=== PATIENT | male | born 1975 | race Caucasian/White ===

== ENCOUNTER → 2019-10-25 13:37 | Outpatient (CLI) | payer BC, SELFPAY ==
[2019-10-25 14:51] LABS: Basophils % 0.6 % (0.1-2.0); Eosinophils # 0.1 K/mm3 (0.0-0.4); Eosinophils % 1.8 % (0.1-12.0); Hematocrit 51.6 % (42.0-52.0); Hemoglobin 17.2 g/dL (14.1-18.0); Lymphocytes # 1.4 K/mm3 (0.7-4.5); Lymphocytes % 26.8 % (10-50); Mean Corpuscular HGB Conc 33.3 g/dL (31.8-35.4); Mean Corpuscular Hemoglobin 31.8 pg (27.0-31.2); Mean Corpuscular Volume 95.5 fl (80-94); Mean Platelet Volume 8.9 fl (7.4-10.4); Monocytes # 0.4 K/mm3 (0.1-1.0); Monocytes % 7.6 % (1.7-9.3); Neutrophils # 3.4 K/mm3 (1.8-7.8); Neutrophils % 63.2 % (37.0-80.0); Platelet Count 233 K/mm3 (142-424); Red Blood Count 5.41 M/mm3 (4.60-6.20); Red Cell Distribution Width 12.8 % (11.5-17.5); White Blood Count 5.4 K/mm3 (4.8-10.8)
[2019-10-25 14:54] LABS: Alanine Aminotransferase 29 U/L (12-78); Albumin Level 4.8 g/dl (3.5-5.0); Albumin/Globulin Ratio 1.5 (1.1-1.8); Alkaline Phosphatase 65 U/L (38-126); Anion Gap 14.5 mEq/L (5-15); Aspartate Amino Transferase 26 U/L (17-59); Bilirubin,Total 0.5 mg/dl (0.2-1.3); Blood Urea Nitrogen 12 mg/dl (9-20); Calcium 10.2 mg/dl (8.4-10.2); Carbon Dioxide 26 mmol/L (22.0-30.0); Chloride 99 mmol/L (98-107); Chol/HDL Ratio 6.4 (1-3.5); Cholesterol 256 mg/dl (140-200); Estimated Glomerular Filt Rate 145 ml/min (>60); GFR (African American) 176 ML/MIN (>60); Globulin 3.2 g/dL (1.3-3.2); Glucose 303 mg/dl (74-100); HDL Cholesterol 40 mg/dl (40-60); Potassium 4.5 mmoL/L (3.5-5.1); Sodium 135 mmol/L (136-145); Triglycerides 229 mg/dl (30-150); VLDL Cholesterol 46 mg/dL (0-40)
[2019-10-25 15:06] LABS: Direct LDL Cholesterol 197.42 mg/dL (100-129)
[2019-10-25 15:13] LABS: T4 (Thyroxine) 9.8 ug/dl (5.53-11.0)
[2019-10-25 15:26] LABS: Prostate Specific Ag Screen 0.6 ng/ml (0.0-4.0)
[2019-10-25 16:20] LABS: Thyroid Stimulating Hormone 1.96 uIU/mL (0.465-4.68)
[2019-10-27 07:37] LABS: Creatinine, Urine 22.2 mg/dL (Not Estab.); Microalbumin, Urine 8.1 ug/mL (Not Estab.)
[2019-10-27 23:10] LABS: Vitamin D 25 Hydroxy 16.8 ng/mL (30.0-100.0)
== END ==
PROVIDERS: Visit Provider Emergency Medicine
DX: E11.9 Type 2 diabetes mellitus without complications (principal); I10 Essential (primary) hypertension; Z79.84 Long term (current) use of oral hypoglycemic drugs
CPT/HCPCS: 80053; 80061; 82043; 82570; 82652; 83036; 84436; 84443; 85025; G0103

== ENCOUNTER 2020-06-07 11:28 | Emergency (ER) | payer BC, SELFPAY ==
[2020-06-07 11:34] VITALS: BP 147/98; PULSE 97; RESP 20; TEMP 37.3; O2SAT 94; BMI 35.6
--- NOTE | 2020-06-07 11:41 | XR_ITS ---
PROCEDURE: XR FOREARM RT 2V CLINICAL INDICATION: pain COMPARISON: No exams were available for comparison FINDINGS: No fracture or dislocation. No lytic or blastic change. There is normal mineralization. The joint spaces are well-preserved. No significant degenerative/arthritic changes. No erosive changes evident. Other findings:None. IMPRESSION: No acute findings. Dictated by: Naseem Branch MD 06/07/2020 13:53 Naseem Branch MD in [place] 06/07/2020 13:53
[2020-06-07 11:42] VITALS: BP 147/98; PULSE 97; RESP 20; TEMP 37.3; O2SAT 94; BMI 35.8
--- NOTE | 2020-06-07 12:21 | HMH.EDUTC ---
[facility] [place] Clinical Impression: Right arm pain Disposition: Home, Self-Care Condition on Discharge: Good Instructions: DI for Arm Pain Additional Instructions: Rest the extremity, apply ice for 15 minutes as tolerated three or four times per day, Wear the mely wrap for compression, Elevate the extremity as tolerated while you are resting. Take ibuprofen for pain. I sent in a prescription to your pharmacy. Follow up with Dr. Horowitz (orthopedics). I put in a referral but you need to call his office and schedule an appointment. Follow up with your regular doctor. GO TO THE ER FOR ANY WORSENING SYMPTOMS Prescriptions: Ibuprofen [Ibuprofen 600mg Tablet] 600 mg PO Q6HP PRN #30 tab PRN Reason: Mild Pain Transmission Status: Received by [facility] Referrals: Kareem Carvalho MD [Primary Care Provider] - Scott Horowitz MD [Staff Physician] - Forms: Work/School Release Time of Disposition: 12:48 Medical Decision Making - Medical Records Medical records reviewed: No: I reviewed the patient's medical records. - Escobar Inquiry Pt receiving controlled substance: No Vital Signs: 06/07/20 11:34 06/07/20 11:42 06/07/20 13:09 Temperature 99.1 F 99.1 F 99.1 F Temperature Source Oral Oral Oral Pulse Rate 97 H Pulse Rate [Right Radial] 97 H 97 H Respiratory Rate 20 20 20 Blood Pressure 147/98 H Blood Pressure [Right Arm] 147/98 H 147/98 H Blood Pressure Mean [Right Arm] 114 114 Blood Pressure Source Automatic Cuff Blood Pressure Source [Right Arm] Automatic Cuff Blood Pressure Position Sitting Blood Pressure Position [Right Arm] Sitting 02 Sat by Pulse Oximetry 94 L 94 L Oxygen Delivery Method Room Air Room Air Room Air - Radiology Data #1 Image(s): Forearm Image Reviewed: Yes I reviewed the patient's radiology image, Yes I have reviewed radiologist's interpretation Preliminary Findings: Normal/NAD, No Fracture Seen PROCEDURE: XR FOREARM RT 2V CLINICAL INDICATION: pain COMPARISON: No exams were available for comparison FINDINGS: No fracture or dislocation. No lytic or blastic change. There is normal mineralization. The joint spaces are well-preserved. No significant degenerative/arthritic changes. No erosive changes evident. Other findings:None. IMPRESSION: No acute findings. Dictated by: Naseem Branch MD 06/07/2020:53 Naseem Branch MD in [place] 06/07/2020 13:53 [facility] [place] - General Stated complaint: right arm pain, no accident Time Seen by Provider: 06/07/20 12:21 Mode of Arrival: Ambulatory Source of Information: Patient Limitations: No Limitations Description of Symptoms (Recalled from Triage Doc. by RN): pt states that approx 1 week ago he was getting up off the floor and it felt like his right forearm bent. pt states the pain is getting worse throughout the week. HEENT Symptoms (Recalled from RN notes): No Resp Symptoms (Recalled from RN notes): No Skin Symptoms (Recalled from RN notes): No MS Symptoms (Recalled from RN notes): Yes Functional Status (Recalled from RN notes): wnl - History of Present Illness Provider Complaint: He c/o 1 week of right fore arm pain. The pain is worse with movement of the arm. He denies any known injury. - Related Data Previous Rx's Medication Instructions Recorded fluticasone furoate 100 1 inh INHALATION DAILY #1 each 10/25/19 mcg-vilanterol 25 mcg/dose inhalation powder albuterol sulfate 90 mcg/actuation 2 puff INHALATION Q6H PRN #18 g 10/28/19 aerosol inhaler glipizide 10 mg tablet, extended 10 mg PO DAILY #90 tab 10/28/19 release 24 hr polyethylene glycol 3350 17 17 g PO DAILY #255 g 11/29/19 gram/dose oral powder aspirin 81 mg tablet,delayed See Rx Instructions .ROUTE 04/23/20 release .COMPLEX #90 unspecified cholecalciferol (vitamin D3) 25 1,000 unit PO DAILY #90 cap 04/23/20 mcg (1,000 unit) capsule ergocalciferol (vitamin D2) 1,250 See Rx Instructions .ROUTE
[2020-06-07 13:09] VITALS: BP 147/98; PULSE 97; RESP 20; TEMP 37.3; O2SAT 94
== END 2020-06-07 13:10 | disposition home or self-care (01) ==
PROVIDERS: Emergency Provider Nurse Practitioner Family; PCP Emergency Medicine
DX: M79.601 Pain in right arm (principal)
CPT/HCPCS: 73090; 99201

== ENCOUNTER → 2020-06-28 14:17 | Outpatient (CLI) | payer BC, SELFPAY ==
--- NOTE | 2020-06-28 14:21 | XR_ITS ---
PROCEDURE: XR ELBOW RT MIN 3V CLINICAL INDICATION: right elbow pain COMPARISON: No exams were available for comparison FINDINGS: No fracture or dislocation. No lytic or blastic change. There is normal mineralization. The joint spaces are well-preserved. No significant degenerative/arthritic changes. No erosive changes evident. Other findings:None. IMPRESSION: No acute findings. Dictated by: Naseem Branch MD 06/28/2020 18:10 Naseem Branch MD in [place] 06/28/2020 18:10
--- NOTE | 2020-06-28 14:21 | XR_ITS ---
PROCEDURE: XR WRIST RT MIN 3V CLINICAL INDICATION: right wrist pain COMPARISON: No exams were available for comparison FINDINGS: No fracture or dislocation. No lytic or blastic change. There is normal mineralization. The joint spaces are well-preserved. No significant degenerative/arthritic changes. No erosive changes evident. Other findings:There are minimal osteoarthritic changes of the distal radial ulnar joint IMPRESSION: Minimal osteoarthritic change of the DRUJ otherwise negative Dictated by: Naseem Branch MD 06/28/2020 18:11 Naseem Branch MD in [place] 06/28/2020 18:11
== END ==
PROVIDERS: PCP Emergency Medicine; Visit Provider Orthopaedic Surgery
DX: M25.531 Pain in right wrist (principal); M25.521 Pain in right elbow
CPT/HCPCS: 73080; 73110

== ENCOUNTER 2020-06-28 15:06 | Outpatient (RCR) | payer BC, SELFPAY | END 2020-06-28 15:42 | disposition home or self-care (01) | LOC: OT 15:06 | PROVIDERS: Visit Provider Orthopaedic Surgery | DX: M65.831 Other synovitis and tenosynovitis, right forearm (principal) | CPT/HCPCS: 97763 ==

== ENCOUNTER → 2020-08-17 17:39 | Outpatient (CLI) | payer BC, SELFPAY ==
[2020-08-17 18:35] LABS: Basophils # 0.1 K/mm3 (0-0.2); Basophils % 0.6 % (0.1-2.0); Eosinophils # 0.2 K/mm3 (0.0-0.4); Eosinophils % 1.9 % (0.1-12.0); Hematocrit 51.9 % (42.0-52.0); Hemoglobin 17.3 g/dL (14.1-18.0); Lymphocytes # 1.9 K/mm3 (0.7-4.5); Lymphocytes % 23.1 % (10-50); Mean Corpuscular HGB Conc 33.4 g/dL (31.8-35.4); Mean Corpuscular Hemoglobin 31.3 pg (27.0-31.2); Mean Corpuscular Volume 93.9 fl (80-94); Mean Platelet Volume 8.6 fl (7.4-10.4); Monocytes # 0.4 K/mm3 (0.1-1.0); Monocytes % 5.3 % (1.7-9.3); Neutrophils # 5.8 K/mm3 (1.8-7.8); Neutrophils % 69.1 % (37.0-80.0); Platelet Count 199 K/mm3 (142-424); Red Blood Count 5.53 M/mm3 (4.60-6.20); Red Cell Distribution Width 12.6 % (11.5-17.5); White Blood Count 8.4 K/mm3 (4.8-10.8)
[2020-08-17 18:43] LABS: Alanine Aminotransferase 28 U/L (12-78); Albumin Level 5.1 g/dl (3.5-5.0); Albumin/Globulin Ratio 1.7 (1.1-1.8); Alkaline Phosphatase 73 U/L (38-126); Anion Gap 13.3 mEq/L (5-15); Aspartate Amino Transferase 26 U/L (17-59); Bilirubin,Total 0.5 mg/dl (0.2-1.3); Blood Urea Nitrogen 10 mg/dl (9-20); Calcium 10.2 mg/dl (8.4-10.2); Carbon Dioxide 28 mmol/L (22.0-30.0); Chloride 101 mmol/L (98-107); Chol/HDL Ratio 4.5 (1-3.5); Cholesterol 199 mg/dl (140-200); Estimated Glomerular Filt Rate 121 ml/min (>60); GFR (African American) 146 ML/MIN (>60); Glucose 335 mg/dl (74-100); HDL Cholesterol 44 mg/dl (40-60); Potassium 4.3 mmoL/L (3.5-5.1); Sodium 138 mmol/L (136-145); Total Protein,Serum 8.1 g/dl (6.3-8.2); Triglycerides 338 mg/dl (30-150); VLDL Cholesterol 68 mg/dL (0-40)
[2020-08-17 18:54] LABS: Direct LDL Cholesterol 111.47 mg/dL (100-129)
[2020-08-17 19:00] LABS: 25-OH Vitamin D, Total 34.4 ng/mL (30-100)
[2020-08-17 19:13] LABS: Thyroid Stimulating Hormone 1.54 uIU/mL (0.465-4.68)
== END ==
PROVIDERS: Visit Provider Family Medicine
DX: E11.9 Type 2 diabetes mellitus without complications (principal); E78.5 Hyperlipidemia, unspecified; I10 Essential (primary) hypertension; Z79.84 Long term (current) use of oral hypoglycemic drugs; Z68.30 Body mass index [BMI] 30.0-30.9, adult
CPT/HCPCS: 80053; 80061; 82306; 83036; 84443; 85025

== ENCOUNTER → 2020-09-28 14:01 | Outpatient (CLI) | payer BC, SELFPAY ==
[2020-09-28 14:22] LABS: Basophils # 0.1 K/mm3 (0-0.2); Basophils % 0.6 % (0.1-2.0); Eosinophils # 0.1 K/mm3 (0.0-0.4); Hematocrit 51.1 % (42.0-52.0); Hemoglobin 17.1 g/dL (14.1-18.0); Lymphocytes # 1.7 K/mm3 (0.7-4.5); Mean Corpuscular HGB Conc 33.4 g/dL (31.8-35.4); Mean Corpuscular Hemoglobin 31.8 pg (27.0-31.2); Mean Corpuscular Volume 95.1 fl (80-94); Mean Platelet Volume 8.9 fl (7.4-10.4); Monocytes # 0.5 K/mm3 (0.1-1.0); Monocytes % 5.8 % (1.7-9.3); Neutrophils # 5.6 K/mm3 (1.8-7.8); Neutrophils % 70.7 % (37.0-80.0); Platelet Count 256 K/mm3 (142-424); Red Blood Count 5.37 M/mm3 (4.60-6.20); Red Cell Distribution Width 12.9 % (11.5-17.5); White Blood Count 7.9 K/mm3 (4.8-10.8)
[2020-09-28 14:31] LABS: Alanine Aminotransferase 26 U/L (12-78); Albumin/Globulin Ratio 1.6 (1.1-1.8); Alkaline Phosphatase 57 U/L (38-126); Anion Gap 13.5 mEq/L (5-15); Aspartate Amino Transferase 25 U/L (17-59); Bilirubin,Total 0.6 mg/dl (0.2-1.3); Blood Urea Nitrogen 16 mg/dl (9-20); Calcium 9.9 mg/dl (8.4-10.2); Carbon Dioxide 25 mmol/L (22.0-30.0); Chloride 106 mmol/L (98-107); Chol/HDL Ratio 4.2 (1-3.5); Cholesterol 134 mg/dl (140-200); Estimated Glomerular Filt Rate 121 ml/min (>60); GFR (African American) 146 ML/MIN (>60); Globulin 3.1 g/dL (1.3-3.2); Glucose 138 mg/dl (74-100); HDL Cholesterol 32 mg/dl (40-60); Potassium 4.5 mmoL/L (3.5-5.1); Sodium 140 mmol/L (136-145); Total Protein,Serum 8.1 g/dl (6.3-8.2); Triglycerides 160 mg/dl (30-150); VLDL Cholesterol 32 mg/dL (0-40)
[2020-09-28 14:42] LABS: Direct LDL Cholesterol 76.42 mg/dL (100-129)
[2020-09-28 14:49] LABS: T4 (Thyroxine) 10.1 ug/dl (5.53-11.0)
[2020-09-28 15:02] LABS: Hemoglobin A1C 11.3 % (4.0-6.0); Thyroid Stimulating Hormone 0.85 uIU/mL (0.465-4.68)
== END ==
PROVIDERS: Visit Provider Family Medicine
DX: E11.9 Type 2 diabetes mellitus without complications (principal); Z79.84 Long term (current) use of oral hypoglycemic drugs; Z79.899 Other long term (current) drug therapy
CPT/HCPCS: 80053; 80061; 83036; 84436; 84443; 85025

== ENCOUNTER 2020-12-19 15:52 | Outpatient (RCR) | payer BC, SELFPAY | END 2020-12-19 16:37 | disposition home or self-care (01) | LOC: PT 15:52 | PROVIDERS: Visit Provider Orthopaedic Surgery | DX: G56.01 Carpal tunnel syndrome, right upper limb (principal); M65.4 Radial styloid tenosynovitis [de Quervain]; M25.531 Pain in right wrist | CPT/HCPCS: 97763 ==

== ENCOUNTER → 2021-01-17 14:07 | Outpatient (CLI) | payer BC, SELFPAY ==
--- NOTE | 2021-01-17 14:12 | XR_ITS ---
PROCEDURE: XR HIP LT 2-3V W/PELVIS CLINICAL INDICATION: left hip pain COMPARISON: No exams were available for comparison FINDINGS: No fracture or dislocation is evident. There is mild asymmetrical joint space narrowing. Mild pericapsular calcifications or ossifications adjacent to the greater trochanter left hip. The left pubic bones appear normal. The SI joints are normal. Right hip shows mild asymmetrical joint space narrowing as well. IMPRESSION: [id number] osteoarthritic changes left hip with periarticular calcifications or ossifications adjacent to the greater trochanter Dictated by: Dr. Donald Velasquez MD 01/17/2021 14:45 Dr. Donald Velasquez MD in [place] 01/17/2021 14:45
== END ==
PROVIDERS: PCP Family Medicine; Visit Provider Orthopaedic Surgery
DX: M25.552 Pain in left hip (principal)
CPT/HCPCS: 73502

== ENCOUNTER → 2021-02-07 13:54 | Outpatient (CLI) | payer BC, SELFPAY ==
--- NOTE | 2021-02-07 14:01 | XR_ITS ---
PROCEDURE: XR HAND LT MIN 3V CLINICAL INDICATION: left hand pain COMPARISON: No exams were available for comparison FINDINGS: No fracture or dislocation. No lytic or blastic change. There is normal mineralization. The joint spaces are well-preserved. No significant degenerative/arthritic changes. No erosive changes evident. Other findings:Benign-appearing cystic areas present in the head of the 3rd metacarpal at approximately 4 mm IMPRESSION: No acute findings. Dictated by: Naseem Branch MD 02/07/2021 14:54 Naseem Branch MD in [place] 02/07/2021 14:54
== END ==
PROVIDERS: PCP Family Medicine; Visit Provider Orthopaedic Surgery
DX: M79.642 Pain in left hand (principal)
CPT/HCPCS: 73130

== ENCOUNTER → 2021-02-07 16:15 | Outpatient (CLI) | payer BC, SELFPAY | PROVIDERS: Visit Provider Orthopaedic Surgery | DX: Z01.812 Encounter for preprocedural laboratory examination (principal) | CPT/HCPCS: 85651 ==

== ENCOUNTER → 2021-02-08 08:30 | Outpatient (CLI) | payer BC, SELFPAY ==
[2021-02-08 09:17] LABS: Basophils % 0.6 % (0.1-2.0); Eosinophils # 0.1 K/mm3 (0.0-0.4); Eosinophils % 1.4 % (0.1-12.0); Hematocrit 50.1 % (42.0-52.0); Lymphocytes # 1.4 K/mm3 (0.7-4.5); Lymphocytes % 23.1 % (10-50); Mean Corpuscular HGB Conc 31.9 g/dL (31.8-35.4); Mean Corpuscular Hemoglobin 30.1 pg (27.0-31.2); Mean Corpuscular Volume 94.3 fl (80-94); Mean Platelet Volume 7.5 fl (7.4-10.4); Monocytes # 0.5 K/mm3 (0.1-1.0); Monocytes % 8.3 % (1.7-9.3); Neutrophils # 4.1 K/mm3 (1.8-7.8); Neutrophils % 66.6 % (37.0-80.0); Platelet Count 212 K/mm3 (142-424); Red Blood Count 5.32 M/mm3 (4.60-6.20); Red Cell Distribution Width 12.8 % (11.5-17.5); White Blood Count 6.1 K/mm3 (4.8-10.8)
[2021-02-08 09:38] LABS: Uric Acid 4.6 mg/dl (3.5-8.5)
[2021-02-08 09:40] LABS: Alanine Aminotransferase 27 U/L (12-78); Albumin Level 4.5 g/dl (3.5-5.0); Albumin/Globulin Ratio 1.9 (1.1-1.8); Alkaline Phosphatase 56 U/L (38-126); Anion Gap 15.3 mEq/L (5-15); Aspartate Amino Transferase 24 U/L (17-59); Bilirubin,Total 0.7 mg/dl (0.2-1.3); Blood Urea Nitrogen 19 mg/dl (9-20); Calcium 9.2 mg/dl (8.4-10.2); Carbon Dioxide 25 mmol/L (22.0-30.0); Chloride 105 mmol/L (98-107); Estimated Glomerular Filt Rate 121 ml/min (>60); GFR (African American) 146 ML/MIN (>60); Globulin 2.4 g/dL (1.3-3.2); Glucose 163 mg/dl (74-100); Potassium 4.3 mmoL/L (3.5-5.1); Sodium 141 mmol/L (136-145); Total Protein,Serum 6.9 g/dl (6.3-8.2)
[2021-02-08 09:43] LABS: C-Reactive Protein 4.8 mg/L (0-4)
[2021-02-08 09:56] LABS: Free T4 (Free Thyroxine) 0.92 ng/dl (0.78-2.19)
[2021-02-08 10:09] LABS: Thyroid Stimulating Hormone 1.13 uIU/mL (0.465-4.68)
[2021-02-08 10:27] LABS: Vitamin B12 356 pg/mL (239-931)
[2021-02-08 11:03] LABS: Erythrocyte Sedimentation Rate 2 mm/hr (0-15)
[2021-02-09 05:37] LABS: RA Latex Turbid. 10.8 IU/mL (0.0-13.9)
[2021-02-10 00:07] LABS: Anti-Cyclic Citrullinated Pept 7 units (0-19)
[2021-02-10 16:17] LABS: Antinuclear Antibodies, IFA Negative (.)
== END ==
PROVIDERS: Orthopaedic Surgery; Visit Provider Family Medicine
DX: M79.642 Pain in left hand (principal); R41.3 Other amnesia
CPT/HCPCS: 36415; 80053; 82607; 84439; 84443; 84550; 85025; 85651; 86038; 86140; 86200; 86431

== ENCOUNTER 2021-02-08 08:57 | Outpatient (RCR) | payer BC, SELFPAY | END 2021-02-08 09:34 | disposition home or self-care (01) | LOC: OT 08:57 | PROVIDERS: Visit Provider Orthopaedic Surgery | DX: M79.642 Pain in left hand (principal) | CPT/HCPCS: 97763 ==

== ENCOUNTER → 2021-02-14 14:32 | Outpatient (CLI) | payer BC, SELFPAY ==
--- NOTE | 2021-02-14 14:32 | CT_ITS ---
PROCEDURE: CT HEAD/BRAIN WO CON CLINICAL INDICATION: memory loss And headache COMPARISON: No exams were available for comparison TECHNIQUE: Axial images obtained. All CT scans at the facility use one or more dose reduction, viz: automated exposure control, ma/kV adjustment per patient size (including targeted exams where dose is matched to indication, i.e. head), or iterative reconstruction technique. FINDINGS: No midline shift, mass effect, intracranial hemorrhage, hydrocephalus, or extra-axial fluid collection is evident. There are no significant atrophic changes. The calvarium has an unremarkable appearance. No mastoid effusion. No sinus air-fluid level. IMPRESSION: No acute intracranial finding Dictated by: Dr. Donald Velasquez MD 02/14/2021 15:21 Dr. Donald Velasquez MD in [place] 02/14/2021 15:21
== END ==
PROVIDERS: PCP Family Medicine; Visit Provider Family Medicine
DX: R41.3 Other amnesia (principal)
CPT/HCPCS: 70450

== ENCOUNTER → 2021-02-19 12:42 | Outpatient (CLI) | payer BC, SELFPAY ==
[2021-02-19 14:23] LABS: Hemoglobin A1C 7.3 % (4.0-6.0)
[2021-02-19 15:23] LABS: Folate 8.67 ng/mL
[2021-02-21 12:11] LABS: Homocyst(e)ine 10.7 umol/L (0.0-14.5)
[2021-02-21 14:07] LABS: Rapid Plasma Reagin Ab Titer Non Reactive (NonRea<1:1)
[2021-02-23 03:49] LABS: Methylmalonic Acid 355 nmol/L (0-378)
== END ==
PROVIDERS: Visit Provider Nurse Practitioner Family
DX: E11.69 Type 2 diabetes mellitus with other specified complication (principal); I10 Essential (primary) hypertension; E78.5 Hyperlipidemia, unspecified; F12.90 Cannabis use, unspecified, uncomplicated; G47.8 Other sleep disorders; R06.83 Snoring; R41.3 Other amnesia; R53.83 Other fatigue; E66.9 Obesity, unspecified; Z68.30 Body mass index [BMI] 30.0-30.9, adult; Z79.84 Long term (current) use of oral hypoglycemic drugs; Z72.0 Tobacco use; Z86.69 Personal history of other diseases of the nervous system and sense organs
CPT/HCPCS: 36415; 82131; 82746; 83036; 83090; 86592; 86618

== ENCOUNTER → 2021-03-01 07:36 | Outpatient (CLI) | payer BC, SELFPAY ==
--- NOTE | 2021-03-01 07:47 | XR_ITS ---
PROCEDURE: XR CHEST 2V CLINICAL HISTORY: R/O FB FOR MRI SCAN COMPARISON: No exams were available for comparison FINDINGS: The cardiomediastinal silhouette and pulmonary vascularity are within normal limits. The lungs are clear without infiltrates, suspicious nodules, or pleural effusions. There is a rounded metallic density measuring 4 mm located in the left upper quadrant representing a BB. IMPRESSION: No acute finding. Metallic foreign body in the left upper quadrant Dictated by: Naseem Branch MD 03/01/2021 08:09 Naseem Branch MD in [place] 03/01/2021 08:09
== END ==
PROVIDERS: PCP Family Medicine; Visit Provider Nurse Practitioner Family
DX: Z18.9 Retained foreign body fragments, unspecified material (principal)
CPT/HCPCS: 71046

== ENCOUNTER → 2021-03-12 07:29 | Outpatient (CLI) | payer BC, SELFPAY ==
[2021-03-12 08:50] LABS: Coronavirus 19 IgG Antibody Negative (Negative); Coronavirus 19 IgM Antibody Negative (Negative)
== END ==
PROVIDERS: Visit Provider Nurse Practitioner Family
DX: Z20.822 Contact with and (suspected) exposure to COVID-19 (principal)
CPT/HCPCS: 36415; 86328

== ENCOUNTER → 2021-11-12 07:52 | Outpatient (CLI) | payer BC, SELFPAY ==
[2021-11-12 08:49] LABS: Basophils # 0.1 K/mm3 (0-0.2); Eosinophils # 0.1 K/mm3 (0.0-0.4); Eosinophils % 1.6 % (0.1-12.0); Hematocrit 53.3 % (42.0-52.0); Hemoglobin 17.4 g/dL (14.1-18.0); Lymphocytes # 1.4 K/mm3 (0.7-4.5); Lymphocytes % 23.8 % (10-50); Mean Corpuscular HGB Conc 32.6 g/dL (31.8-35.4); Mean Corpuscular Volume 98.2 fl (80-94); Mean Platelet Volume 7.9 fl (7.4-10.4); Monocytes # 0.4 K/mm3 (0.1-1.0); Monocytes % 6.8 % (1.7-9.3); Neutrophils # 3.9 K/mm3 (1.8-7.8); Neutrophils % 66.8 % (37.0-80.0); Platelet Count 208 K/mm3 (142-424); Red Blood Count 5.43 M/mm3 (4.60-6.20); Red Cell Distribution Width 12.9 % (11.5-17.5); White Blood Count 5.9 K/mm3 (4.8-10.8)
[2021-11-12 09:24] LABS: Hemoglobin A1C 6.8 % (4.0-6.0)
[2021-11-12 09:41] LABS: Chloride 106 mmol/L (98-107); Potassium 5.1 mmoL/L (3.5-5.1); Sodium 141 mmol/L (136-145)
[2021-11-12 09:43] LABS: Alanine Aminotransferase 24 U/L (12-78); Albumin Level 4.7 g/dl (3.5-5.0); Albumin/Globulin Ratio 1.9 (1.1-1.8); Alkaline Phosphatase 60 U/L (38-126); Anion Gap 11.1 mEq/L (5-15); Aspartate Amino Transferase 24 U/L (17-59); Bilirubin,Total 0.4 mg/dl (0.2-1.3); Blood Urea Nitrogen 16 mg/dl (9-20); Carbon Dioxide 29 mmol/L (22.0-30.0); Estimated Glomerular Filt Rate 120 ml/min (>60); GFR (African American) 146 ML/MIN (>60); Globulin 2.5 g/dL (1.3-3.2); Total Protein,Serum 7.2 g/dl (6.3-8.2)
[2021-11-12 09:44] LABS: Calcium 8.9 mg/dl (8.4-10.2); Chol/HDL Ratio 3.2 (1-3.5); Cholesterol 120 mg/dl (140-200); Glucose 135 mg/dl (74-100); HDL Cholesterol 38 mg/dl (40-60); Triglycerides 98 mg/dl (30-150); VLDL Cholesterol 20 mg/dL (0-40)
[2021-11-12 09:55] LABS: Direct LDL Cholesterol 67.55 mg/dL (100-129)
[2021-11-12 10:15] LABS: Thyroid Stimulating Hormone 0.94 uIU/mL (0.465-4.68)
== END ==
PROVIDERS: Visit Provider Family Medicine
DX: Z00.00 Encounter for general adult medical examination without abnormal findings (principal); E11.9 Type 2 diabetes mellitus without complications
CPT/HCPCS: 36415; 80053; 80061; 83036; 84443; 85025

== ENCOUNTER → 2021-11-22 09:16 | Outpatient (CLI) | payer BC, SELFPAY | PROVIDERS: PCP Family Medicine; Visit Provider Physician Assistant | DX: R06.00 Dyspnea, unspecified (principal); R00.2 Palpitations; E11.9 Type 2 diabetes mellitus without complications; E78.5 Hyperlipidemia, unspecified; I10 Essential (primary) hypertension; E66.9 Obesity, unspecified; Z72.0 Tobacco use; Z79.84 Long term (current) use of oral hypoglycemic drugs | CPT/HCPCS: 93270 ==

== ENCOUNTER → 2021-11-29 06:58 | Outpatient (CLI) | payer BC, SELFPAY ==
--- NOTE | 2021-11-29 07:00 | CA_ITS ---
APPROVED REPORT EXAM: Comprehensive 2D, Doppler, and color-flow Echocardiogram Key Account Representative: Sissy Whitfield RVT Ht: 6 ft 1 in Wt: 223lbs BSA: 2.25 BP: 123/79 mmHg Indications: CP,SOA,PALPS,SMOKER,DM,HTN,HLD 2D Dimensions LVOT 2.02 cm (M/F) 1.5-2.5 LA Volume 34.40 mL LA Volume Index 15.28 mL/m2 (M/F) 16-34 M-Mode Dimensions RVDd 2.33 cm (0.9-2.6) LA Diam 3.73 cm (1.9-4.0) LVDd 5.38 cm (3.5-5.7) Ao Diam 3.73 cm (2.0-3.7) LVDs 3.49 cm (3.5-5.7) IVSd 1.00 cm (0.6-1.1) PWd 1.00 cm (0.6-1.1) EF (Teich) 64.00% FS 35.10% EDV (Teich) 140.10 mL TAPSE 2.70 (<1.7) ESV (Teich) 50.50 mL LV Diastology E Decel Time 207.00 (160-240 msec) E/A Ratio 1.1 MED E' 6.90 (< 7 cm/sec) E'/MED E' Ratio 14.26 (>14) LAT E' 7.00 (<10 cm/sec) E/LAT E' Ratio 14.06 (>14) Aortic Valve LVOT Max 152.00 (70-110 cm/s) LVOT VTI 30.11 cm AoV Peak Miky. 156.00 (50-130 cm/s) AO Peak GR. 9.80 mmHg AO Mean GR. 5.20 (<5 mmHg) AO VTI 32.58 (18-25 cm) JUAN (VTI) 2.96 (2.5-4.5 cm2) Mitral Valve MV E Max Miky. 98.00 (40-130 cm/s) MV A Velocity 92.00 (40-130 cm/s) E/A Ratio 1.06 MV Decel. Time 207.00 (160-240 ms) MV PHT 61.00 ms Pulmonary Valve PV Peak Velocity 78.00 (50-150 cm/s) Tricuspid Valve TR P. Velocity 135.00 cm/s RAP Estimate 10.00 mmHg RVSP 17.30 mmHg Left Ventricle Left atrium is mildly enlarged, left ventricle normal size, mild concentric left ventricular hypertrophy, estimated ejection fraction 55% with no regional wall motion abnormality, diastolic parameters are inconclusive. Right Ventricle Right atrium and right ventricle are normal size and contractility. Aortic Valve Aortic valve is minimally thickened and fibrosed, there is no aortic stenosis or aortic insufficiency. Mitral Valve Mitral valve grossly normal, there is trace mitral regurgitation. Tricuspid Valve Tricuspid valve grossly normal, there is trace tricuspid regurgitation, tricuspid rotation jet velocity is inadequate for calculation of the right ventricular systolic pressure. Pulmonic Valve Pulmonic valve is poorly visualized. Great Vessels Aortic root is normal size. Inferior vena cava is mildly dilated and respiratory collapse. Pericardium No significant pericardial effusion noted. Conclusion 1. Mildly enlarged left atrium, normal left ventricular size, mild concentric left ventricular hypertrophy, estimated ejection fraction 55% with no regional wall motion abnormality, diastolic parameters are inconclusive. 2. Trace mitral and tricuspid rotation. 3. No significant pericardial effusion noted. 4. Inferior vena cava is mildly dilated with normal inspiratory collapse. Electronically signed by : Florentni Alvarez MD 11/30/2021 10:06:53
--- NOTE | 2021-11-29 07:00 | CA_ITS ---
APPROVED REPORT Exam: Exercise Treadmill Technologist: Janell Pascual, Ht: 6 ft 1 in Wt: 217 lbs BSA: 2.23 m2 HR: 66 bpm BP: 129/81 mmHg Rhythm: NSR Indications: CP Medical History Medical History: HTN, Hyperlipidemia, Diabetic ??? Noninsulin, Smoking Medications: Lisinopril,,,,, Aspirin,,,,, Simvastatin,,,,, Metformin,,,,, TAMSULOSIN,,,,, Albuterol,,,,, Ibuprofen,,,,, DApagliflozin,,,,, SeMaglutide,,,,, Allergies: ERYTHROMYCIN,IODINE,PCN Cardiac Risk Factors: HTN, Hyperlipidemia, Diabetes (non-insulin), FHX of CAD, Smoking Stress Test Details Test: Neela HR Resting HR: 74 bpm Max Heart Rate (APMHR): 172.975836 bpm Max HR Achieved: 197 bpm Target HR (85% APMHR): 146.960547 bpm % of APMHR: 114.53 Recovery HR: 105 bpm BP Resting BP: 138.0/84.0 mmHg Max BP: 188.0/75.0 mmHg Recovery BP: 188.0/75.0 mmHg ECG Resting ECG: NSR Clinical Exercise duration: 07:00 min Highest Stage Achieved: Exercise capacity: 10.1 METs Stress ECG Conclusion PATIENT EXERCISED 7:00 INTO STAGE 3 OF NEELA PROTOCOL STOPPING DUE TO SOA. MAX HEART RATE 139 BPM WHICH IS 81% OF PM FOR AGE. MAX BP 188/75. METS = 10.1. TEST STOPPED DUE TO DYSPNEA. SOA BUT NO CHEST PAIN. NO ARRHYTHMIAS/ECTOPY. ALLOWING FOR MOTION ARTIFACT THE ST RESPONSE TO EXERCISE APPEARS WITHIN NORMAL LIMITS. WITHIN NORMAL GXT LIMITS TO HR ACHIEVED(81% OF PM). MYOVIEW IMAGES REPORTED SEPARATELY. Test Summary REST . . . . . . . Sitting REST . . . . . . . Standing REST 03:52 0.0 0.0 74 . 138/ 84 . . Stage 1 01:00 10.0 1.7 87 . . . . Stage 1 02:00 10.0 1.7 100 . . . . Stage 1 03:00 10.0 1.7 103 . 162/ 80 . . Stage 2 01:00 12.0 2.5 197 . . . . Stage 2 02:00 12.0 2.5 126 . 186/ 80 . . Stage 2 . . . . . . . Myoview Injected Stage 2 03:00 12.0 2.5 128 . 186/ 80 . . Stage 3 01:00 14.0 3.4 138 . . . Stop exercise at 07:00 RECOVERY 01:00 0.0 0.0 108 . . . . RECOVERY 02:00 0.0 0.0 91 . 188/ 75 . . RECOVERY 03:00 0.0 0.0 87 . 182/ 83 . . RECOVERY 04:00 0.0 0.0 85 . 141/ 84 . . RECOVERY 05:00 0.0 0.0 87 . 146/ 87 . . RECOVERY 05:13 0.0 0.0 86 . 146/ 87 . . Electronically signed by : Florentin Alavrez MD 11/30/2021 09:23:45
--- NOTE | 2021-11-29 07:00 | NM_ITS ---
APPROVED REPORT Exam: Nuclear Stress Test Indication: chest pain..short of breath..palpitations..fatigue Patient Location: Outpatient Stress Tech: Janell Pascual [place] Tech:Sherri MancillaTUCKER RT(R)(N) Ht: 6 ft 1 in Wt: 217 lbs HR: 66 bpm BP: 129/81 mmHg BSA: 2.23 m2 BMI: 28.6 History: chest pain..short of breath..palpitations..fatigue Procedure: Patient exercised on Asim protocol 7 minutes and sec, resting heart rate 66 bpm, resting blood pressure 129/81 mmHg, with exercise maximum heart rate achived was 139 bpm which is 81 % of the maximum predicted heart rate and blood pressure was 188/75 mmHg. Test was stopped due to dyspnea. Patient denied any complaint of chest pain. Patient has Good exercise capacity, achieved 10.1 METs of workload on treadmill, the blood pressure response to exercise was Adequate. Electrocardiogram Resting electrocardiogram shows sinus rhythm, with exercise there is less than 1.[address] segment depression noted from the baseline EKG. The EKG portion of the exercise Myoview is nondiagnostic as patient did not achieve the target heart rate. Cardiac Stress and Resting SPECT Images: Cardiac Stress and Resting SPECT images were obtained using technetium 99m Myoview 32.9 mCi stress and 10.62 mCi at rest. Gated SPECT for analysis of segmental wall motion and calculation of the ejection fraction also done. Cardiac stress and rest SPECT images show uniform myocardial activity without segmental perfusion abnormality, computer derived ejection fraction is 68% with no regional wall motion abnormality, right ventricle is normal size and contractility. Conclusion: 1. The EKG portion of the exercise Myoview is nondiagnostic as patient did not achieve the target heart rate, patient has good exercise capacity achieved 10.1 METs of workload on treadmill, the blood pressure response to exercise was adequate, there was no exercise-induced chest discomfort. 2. No scintigraphic evidence of reversible ischemia seen at this level of exercise, computer derived ejection fraction is 68% with no regional wall motion abnormality, right ventricle is normal size and contractility. Electronically signed by : Florentin Alvarez MD 11/30/2021 09:30:46
== END ==
PROVIDERS: PCP Family Medicine; Visit Provider Internal Medicine Cardiovascular Disease
DX: R06.00 Dyspnea, unspecified (principal); R00.2 Palpitations; I10 Essential (primary) hypertension; E78.5 Hyperlipidemia, unspecified; E11.9 Type 2 diabetes mellitus without complications; E66.9 Obesity, unspecified; Z72.0 Tobacco use; Z79.84 Long term (current) use of oral hypoglycemic drugs; Z68.29 Body mass index [BMI] 29.0-29.9, adult
CPT/HCPCS: 78452; 93017; 93306; A9502

== ENCOUNTER → 2022-02-08 11:13 | Outpatient (CLI) | payer BC, SELFPAY ==
[2022-02-08 11:36] LABS: Basophils # 0.1 K/mm3 (0-0.2); Basophils % 0.7 % (0.1-2.0); Eosinophils # 0.1 K/mm3 (0.0-0.4); Hematocrit 48.4 % (42.0-52.0); Hemoglobin 15.8 g/dL (14.1-18.0); Lymphocytes # 1.6 K/mm3 (0.7-4.5); Lymphocytes % 23.2 % (10-50); Mean Corpuscular HGB Conc 32.5 g/dL (31.8-35.4); Mean Corpuscular Hemoglobin 31.9 pg (27.0-31.2); Mean Platelet Volume 7.7 fl (7.4-10.4); Monocytes # 0.5 K/mm3 (0.1-1.0); Monocytes % 6.7 % (1.7-9.3); Neutrophils # 4.6 K/mm3 (1.8-7.8); Neutrophils % 67.4 % (37.0-80.0); Platelet Count 214 K/mm3 (142-424); Red Blood Count 4.94 M/mm3 (4.60-6.20); White Blood Count 6.9 K/mm3 (4.8-10.8)
[2022-02-08 12:16] LABS: C-Reactive Protein 2.5 mg/L (0-4)
[2022-02-11 17:47] LABS: Cytoplasmic (C-ANCA) <1:20 titer (Neg:<1:20); Perinuclear (P-ANCA) <1:20 titer (Neg:<1:20)
[2022-02-12 10:28] LABS: D001-IgE D pteronyssinus <0.10 kU/L (Class 0); D002-IgE D farinae <0.10 kU/L (Class 0); E001-IgE Cat Dander 0.46 kU/L (Class I); E005-IgE Dog Dander 0.12 kU/L (Class 0/I); E072-IgE Mouse Urine <0.10 kU/L (Class 0); G002-IgE Bermuda Grass 0.26 kU/L (Class 0/I); G006-IgE Timothy Grass 4.43 kU/L (Class IV); I006-IgE Cockroach, German <0.10 kU/L (Class 0); Immunoglobulin E, Total 81 IU/mL (6-495); M001-IgE Penicillium chrysogen <0.10 kU/L (Class 0); M002-IgE Cladosporium herbarum <0.10 kU/L (Class 0); M003-IgE Aspergillus fumigatus <0.10 kU/L (Class 0); M006-IgE Alternaria alternata 1.36 kU/L (Class II); T001-IgE Maple/Box Elder <0.10 kU/L (Class 0); T003-IgE Common Silver Birch 1.23 kU/L (Class II); T006-IgE Cedar, Mountain <0.10 kU/L (Class 0); T007-IgE Oak, White 1.24 kU/L (Class II); T008-IgE Elm, American <0.10 kU/L (Class 0); T010-IgE Walnut <0.10 kU/L (Class 0); T011-IgE Maple Leaf Sycamore <0.10 kU/L (Class 0); T014-IgE Cottonwood <0.10 kU/L (Class 0); T022-IgE Pecan, Hickory <0.10 kU/L (Class 0); T070-IgE White Mulberry <0.10 kU/L (Class 0); W001-IgE Ragweed, Short <0.10 kU/L (Class 0); W011-IgE Thistle, Russian <0.10 kU/L (Class 0); W014-IgE Pigweed, Common <0.10 kU/L (Class 0); W018-IgE Sheep Sorrel <0.10 kU/L (Class 0)
[2022-02-12 14:15] LABS: Strongyloides IgG Antibody Negative (Negative)
[2022-02-15 22:57] LABS: Antinuclear Antibodies (ANA) NEGATIVE
== END ==
PROVIDERS: PCP Family Medicine; Visit Provider Internal Medicine Pulmonary Disease
DX: R06.09 Other forms of dyspnea (principal); J45.909 Unspecified asthma, uncomplicated; D72.19 Other eosinophilia; J84.9 Interstitial pulmonary disease, unspecified
CPT/HCPCS: 36415; 82785; 85025; 86003; 86038; 86140; 86225; 86235; 86256; 86682

== ENCOUNTER → 2022-02-19 08:36 | Outpatient (CLI) | payer BC, SELFPAY | PROVIDERS: PCP Family Medicine; Visit Provider Nurse Practitioner Family | DX: R06.02 Shortness of breath (principal) | CPT/HCPCS: 94762 ==

== ENCOUNTER → 2022-03-22 07:26 | Outpatient (CLI) | payer BC, SELFPAY ==
--- NOTE | 2022-03-22 09:00 | PC.NURSE ---
PFT and 6 Minute Walk Test completed without complication. Pt given Albuterol 0.083% via HHN per written protocol. Pt tolerated tx well.
== END ==
PROVIDERS: PCP Family Medicine; Visit Provider Internal Medicine Pulmonary Disease
DX: R06.09 Other forms of dyspnea (principal)
CPT/HCPCS: 94060; 94618; 94726; 94729

== ENCOUNTER → 2022-05-07 08:34 | Outpatient (CLI) | payer BC, SELFPAY ==
[2022-05-07 13:59] LABS: Basophils # 0.1 K/mm3 (0-0.2); Basophils % 1.3 % (0.1-2.0); Eosinophils # 0.1 K/mm3 (0.0-0.4); Eosinophils % 1.5 % (0.1-12.0); Hematocrit 53.1 % (42.0-52.0); Hemoglobin 17.3 g/dL (14.1-18.0); Lymphocytes # 1.6 K/mm3 (0.7-4.5); Lymphocytes % 21.7 % (10-50); Mean Corpuscular HGB Conc 32.5 g/dL (31.8-35.4); Mean Corpuscular Hemoglobin 32.1 pg (27.0-31.2); Mean Corpuscular Volume 98.9 fl (80-94); Mean Platelet Volume 9.1 fl (7.4-10.4); Monocytes # 0.8 K/mm3 (0.1-1.0); Monocytes % 9.9 % (1.7-9.3); Neutrophils % 65.6 % (37.0-80.0); Platelet Count 209 K/mm3 (142-424); Red Blood Count 5.37 M/mm3 (4.60-6.20); Red Cell Distribution Width 13.1 % (11.5-17.5); White Blood Count 7.5 K/mm3 (4.8-10.8)
[2022-05-07 14:13] LABS: Chloride 100 mmol/L (98-107); Potassium 4.2 mmoL/L (3.5-5.1); Sodium 141 mmol/L (136-145)
[2022-05-07 14:15] LABS: Alanine Aminotransferase 31 U/L (12-78); Aspartate Amino Transferase 37 U/L (17-59); Blood Urea Nitrogen 14 mg/dl (9-20); Estimated Glomerular Filt Rate 120 ml/min (>60); GFR (African American) 145 ML/MIN (>60)
[2022-05-07 14:16] LABS: Albumin Level 5.1 g/dl (3.5-5.0); Albumin/Globulin Ratio 1.9 (1.1-1.8); Alkaline Phosphatase 80 U/L (38-126); Anion Gap 19.2 mEq/L (5-15); Bilirubin,Total 0.5 mg/dl (0.2-1.3); Calcium 9.3 mg/dl (8.4-10.2); Carbon Dioxide 26 mmol/L (22.0-30.0); Chol/HDL Ratio 3.5 (1-3.5); Cholesterol 149 mg/dl (140-200); Globulin 2.7 g/dL (1.3-3.2); Glucose 122 mg/dl (74-100); HDL Cholesterol 43 mg/dl (40-60); Total Protein,Serum 7.8 g/dl (6.3-8.2); Triglycerides 150 mg/dl (30-150); VLDL Cholesterol 30 mg/dL (0-40)
[2022-05-07 14:46] LABS: Thyroid Stimulating Hormone 1.19 uIU/mL (0.465-4.68)
[2022-05-07 14:50] LABS: 25-OH Vitamin D, Total 20.5 ng/mL (30-100)
[2022-05-07 15:05] LABS: Direct LDL Cholesterol 80.08 mg/dL (100-129)
[2022-05-07 15:12] LABS: T4 (Thyroxine) 9.8 ug/dl (5.53-11.0)
[2022-05-07 15:25] LABS: Prostate Specific Ag Screen 0.4 ng/ml (0.0-4.0)
[2022-05-07 15:28] LABS: Hemoglobin A1C 7.5 % (4.0-6.0)
== END ==
PROVIDERS: PCP Family Medicine; Visit Provider Family Medicine
DX: E11.9 Type 2 diabetes mellitus without complications (principal); E55.9 Vitamin D deficiency, unspecified; Z79.84 Long term (current) use of oral hypoglycemic drugs
CPT/HCPCS: 80053; 80061; 82306; 83036; 84436; 84443; 85025; G0103

== ENCOUNTER → 2022-09-30 09:25 | Outpatient (CLI) | payer BC, SELFPAY ==
[2022-09-30 13:35] LABS: Alanine Aminotransferase 29 U/L (12-78); Albumin/Globulin Ratio 1.9 (1.1-1.8); Alkaline Phosphatase 68 U/L (38-126); Anion Gap 12.3 mEq/L (5-15); Aspartate Amino Transferase 27 U/L (17-59); Bilirubin,Total 0.7 mg/dl (0.2-1.3); Blood Urea Nitrogen 12 mg/dl (9-20); Calcium 9.4 mg/dl (8.4-10.2); Carbon Dioxide 25 mmol/L (22.0-30.0); Chloride 105 mmol/L (98-107); Chol/HDL Ratio 3.9 (1-3.5); Cholesterol 147 mg/dl (140-200); Estimated Glomerular Filt Rate 143 ml/min (>60); GFR (African American) 173 ML/MIN (>60); Globulin 2.7 g/dL (1.3-3.2); Glucose 133 mg/dl (74-100); HDL Cholesterol 38 mg/dl (40-60); Potassium 4.3 mmoL/L (3.5-5.1); Sodium 138 mmol/L (136-145); Total Protein,Serum 7.7 g/dl (6.3-8.2); Triglycerides 180 mg/dl (30-150); VLDL Cholesterol 36 mg/dL (0-40)
[2022-09-30 13:46] LABS: Direct LDL Cholesterol 91.45 mg/dL (100-129)
[2022-09-30 13:52] LABS: Hemoglobin A1C 7.1 % (4.0-6.0)
== END ==
PROVIDERS: PCP Family Medicine; Visit Provider Family Medicine
DX: E11.9 Type 2 diabetes mellitus without complications (principal); I10 Essential (primary) hypertension; R53.83 Other fatigue; Z79.84 Long term (current) use of oral hypoglycemic drugs
CPT/HCPCS: 80053; 80061; 83036